=== PATIENT | female | born 1995 | race Caucasian/White ===

== ENCOUNTER 2017-06-06 09:25 | Emergency (ER) | payer BC, OTHER ==
[2017-06-06 09:44] VITALS: BP 133/82
--- NOTE | 2017-06-06 11:04 | UC ---
Complaint Female HPI - HPI Summary HPI Summary: right upper quad pain radiating in to back food makes her nauseated - History Of Current Complaint Chief Complaint: UCAbdominalPain Stated Complaint: ABD/BACK PAIN Time Seen by Provider: 06/06/17 10:53 Hx Obtained From: Patient Hx Last Menstrual Period: Nexplanon ?: No Onset/Duration: Sudden Onset, Lasting Days Timing: Intermittent Severity Initially: Moderate Severity Currently: Moderate Pain Intensity: 6 Pain Scale Used: 0-10 Numeric Character: Cramping, Colicy Aggravating Factor(s): Nothing Alleviating Factor(s): Nothing Associated Signs And Symptoms: Positive: Nausea - Allergies/Home Medications Allergies/Adverse Reactions: Allergies Allergy/AdvReac Type Severity Reaction Status Date / Time No Known Allergies Allergy Verified 06/06/17 09:44 Home Medications: Home Medications Etonogestrel [Nexplanon] 1 applic IMPLANT ONCE 06/06/17 [History Confirmed 06/06] PMH/Surg Hx/FS Hx/Imm Hx Previously Healthy: Yes Other History Of: Negative For: Anticoagulant Therapy - Surgical History Surgical History: Yes Surgery Procedure, Year, and Place: nose - Family History Known Family History: Positive: None - Social History Occupation: Employed Full-time Lives: With Family Alcohol Use: None Substance Use Type: None Smoking Status (MU): Never Smoked Tobacco Type: Cigarettes Household Exposure Type: Cigarettes - Immunization History Most Recent Influenza Vaccination: Not UTD Vaccination Up to Date: Yes Review of Systems Constitutional: Negative Skin: Negative Eyes: Negative ENT: Negative Respiratory: Negative Cardiovascular: Negative Gastrointestinal: Abdominal Pain, Nausea Genitourinary: Negative Motor: Negative Neurovascular: Negative Musculoskeletal: Negative Neurological: Negative Psychological: Negative Is Patient Immunocompromised?: No All Other Systems Reviewed And Are Negative: Yes Physical Exam Triage Information Reviewed: Yes Appearance: Well-Appearing, No Pain Distress, Well-Nourished Vital Signs: Initial Vital Signs Temp 97.8 F 06/06/17 09:38 Pulse 86 06/06/17 09:38 Resp 18 06/06/17 09:38 BP 133/82 06/06/17 09:38 Pulse Ox 99 06/06/17 09:38 Vital Signs Reviewed: Yes Eye Exam: Normal Eyes: Positive: Conjunctiva Clear ENT Exam: Normal ENT: Positive: Normal ENT inspection, Hearing grossly normal, Pharynx normal, Uvula midline. Negative: Nasal congestion, Nasal drainage, Trismus, Muffled voice, Hoarse voice, Dental tenderness, Sinus tenderness Dental Exam: Normal Neck exam: Normal Neck: Positive: Supple, Nontender, No Lymphadenopathy Respiratory Exam: Normal Respiratory: Positive: Chest non-tender, Lungs clear, Normal breath sounds, No respiratory distress, No accessory muscle use Cardiovascular Exam: Normal Cardiovascular: Positive: RRR, No Murmur, Pulses Normal, Brisk Capillary Refill Abdominal Exam: Normal Abdomen Description: Positive: No Organomegaly, Soft, Other: - right upper quad pain. Negative: CVA Tenderness (R), CVA Tenderness (L), Hepatomegaly, McBurney' s Point Tenderness Bowel Sounds: Positive: Present Musculoskeletal Exam: Normal Musculoskeletal: Positive: Strength Intact, ROM Intact, No Edema Neurological Exam: Normal Neurological: Positive: Alert, Muscle Tone Normal Psychological Exam: Normal Skin Exam: Normal Diagnostics - Radiology No standard instances Xray Interpretation: No Acute Changes Radiology Interpretation Completed By: Radiologist Complaint Female Dx - Course Course Of Treatment: protonix, macrobid, culture urine, increase fluids, to ED for increased pain fever nausea vomiting follow with pcp this comming week - Differential Dx/Diagnosis Provider Diagnoses: Abdomen pain Discharge - Discharge Plan Condition: Stable Disposition: HOME Prescriptions: Nitrofurantoin Monohyd Macro [Macrobid] 100 mg PO BID #20 cap Pantoprazole TAB (NF) [Protonix TAB (NF)] 40 mg PO DAILY #14 tab Patient Education Materials: Gastritis (ED), Urinary Tract Infection in Women ( ED), Acute Abdominal Pain (ED) Referrals: Fatimah Tucker MD [Primary Care Provider] - 1 Week
[2017-06-06] MEDS ORDERED: HYDROcodone/ACETAMIN 5-325 MG* 1 TAB PO ONE (11:30)
[2017-06-06] MEDS ORDERED: Ondansetron ODT TAB* 4 MG PO ONE (11:30)
--- NOTE | 2017-06-06 11:59 | RAD ---
INDICATION: ] Right upper quadrant pain COMPARISON: None TECHNIQUE: Longitudinal and transverse scans of the right upper quadrant were obtained. Doppler interrogation of the hepatic and portal venous system was performed. FINDINGS: Liver: There is hepatomegaly with hepatic steatosis. There are no masses . The liver measures 19.9 cm in cephalocaudal dimension. Vessels: There is normal hepatic and portal venous flow. Bile ducts: There is no evidence of intrahepatic or extrahepatic ductal dilatation. The common duct measures 0.3 cm. Gallbladder: The sonographic appearance of the gallbladder is normal. There is no evidence of cholelithiasis, thickening of the gallbladder wall, or pericholecystic fluid. Pancreas: The visualized pancreas appears normal Right kidney: The right kidney is normal in size and echogenicity. There are no masses or calculi. There is no evidence of hydronephrosis. The right kidney measures 12.0 x 4.3 x 4.8 cm. IVC and aorta: The aorta and superior vena cava appear normal. Fluid: There is no ascites. Other: None. IMPRESSION: HEPATOMEGALY WITH HEPATIC STEATOSIS. NORMAL GALLBLADDER.
== END 2017-06-06 12:28 | disposition home or self-care (01) ==
LOC: UCEAST 09:25
DX: R10.11 Right upper quadrant pain (principal); Z32.02 Encounter for pregnancy test, result negative
CPT/HCPCS: 76705; 81003; 84702; 87086; 99212; A9270-GY; G0463

== ENCOUNTER 2017-06-06 20:44 | Emergency (ER) | payer BC ==
[2017-06-06] MEDS ORDERED: Ketorolac INJ* 30 MG/ML 1 ML VIAL IV PUSH PRN (22:41)
[2017-06-06 23:02] LABS: Hematocrit 43 % (35-47); Hemoglobin 14.5 g/dl (12.0-16.0); Mean Corpuscular HGB Conc 34 g/dl (31-36); Mean Corpuscular Hemoglobin 28 pg (27-31); Mean Corpuscular Volume 83 fL (80-97); Mean Platelet Volume 8 um3 (7.4-10.4); Red Blood Count 5.18 10^6/ul (4.0-5.4); Red Cell Distribution Width 14 % (10.5-15); White Blood Count 12.3 10^3/ul (3.5-10.8)
[2017-06-06 23:18] LABS: ALT 43 U/L (7-52); AST 24 U/L (13-39); Albumin 4.2 g/dL (3.2-5.2); Alkaline Phosphatase 98 U/L (34-104); Anion Gap 9 mmol/L (2-11); BUN/Creatinine Ratio 12.9 (8-20); Blood Urea Nitrogen 11 mg/dL (6-24); CO2 Carbon Dioxide 22 mmol/L (22-32); Calcium 9.6 mg/dL (8.6-10.3); Chloride 106 mmol/L (101-111); Creatine Kinase 183 U/L (10-223); EGFR African American 109.7 (>60); EGFR Non-African American 85.3 (>60); Globulin 3.1 g/dL (2-4); Glucose 81 mg/dL (70-100); Magnesium 2.2 mg/dL (1.9-2.7); Sodium 137 mmol/L (133-145); Total Protein 7.3 g/dL (6.4-8.9)
[2017-06-06 23:26] LABS: Troponin I 0.06 ng/mL (<0.04)
[2017-06-06] MEDS ORDERED: Ketorolac INJ* 60 MG/2 ML VIAL IM ONE (23:48)
[2017-06-06] MEDS ORDERED: Aspirin Low Dose CHEW TAB* 81 MG PO ONE (23:48)
--- NOTE | 2017-06-07 03:47 | ED ---
Antonella Garcia Thomas, scribed for Faviola Ledezma MD on 06/06/17 at 2305 . Abdominal Pain/Female - HPI Summary HPI Summary: The pt is a 21 y/o F presenting to the ED c/o right anterior chest pain that began today at 19:00. The patient was evaluated at Urgent Care today and instructed to come to the ED if she developed chest pain. In the ED, the pt reports pain originating in the abd that has moved to the chest. Pain is moderate in severity. The pain is aggravated by deep breaths and is alleviated by nothing. Patient additionally c/o of mild cough and SOB. She was diagnosed with a UTI at urgent care. - History of Current Complaint Chief Complaint: EDChestWallPain Stated Complaint: SOB/CHEST PAIN Time Seen by Provider: 06/06/17 22:34 Hx Obtained From: Patient Hx Last Menstrual Period: Nexplanon Onset/Duration: Lasting Hours - 2.5, Still Present Timing: Constant Severity Currently: Moderate Pain Intensity: 7 Pain Scale Used: 0-10 Numeric Aggravating Factor(s): Deep Breaths Alleviating Factor(s): Nothing Associated Signs and Symptoms: Positive: Cough - mild, Chest Pain, Other: - SOB Allergies/Adverse Reactions: Allergies Allergy/AdvReac Type Severity Reaction Status Date / Time No Known Allergies Allergy Verified 06/06/17 09:44 PMH/Surg Hx/FS Hx/Imm Hx Previously Healthy: Yes Endocrine/Hematology History: Denies: Hx Anticoagulant Therapy, Hx Diabetes, Other Endocrine/Hematological Disorders Cardiovascular History: Denies: Hx Hypertension, Hx Pacemaker/ICD, Other Cardiovascular Problems/ Disorders Respiratory History: Reports: Hx Asthma - asthma-like exercise induced Denies: Other Respiratory Problems/Disorders GI History: Denies: Other GI Disorders History: Denies: Other Problems/Disorders Musculoskeletal History: Denies: Other Musculoskeletal History Sensory History: Denies: Hx Hearing Aid, Other Sensory Impairments Opthamlomology History: Denies: Other Sensory Impairments Neurological History: Denies: Other Neuro Impairments/Disorders Psychiatric History: Reports: Hx Depression Denies: Hx Eating Disorder, Hx Panic Disorder, Hx of Violent Episodes Against Others, Other Psychiatric Issues/Disorders - Surgical History Surgery Procedure, Year, and Place: nose Infectious Disease History: No Infectious Disease History: Denies: Hx Clostridium Difficile, Hx Hepatitis, Hx Human Immunodeficiency Virus (HIV), Hx Tuberculosis, History Other Infectious Disease, Traveled Outside the [place] in Last 30 Days - Family History Known Family History: Positive: Other - Depression - Social History Alcohol Use: None Substance Use Type: Reports: None Type: Cigarettes Review of Systems Positive: Chest Pain. Negative: Palpitations Positive: Shortness Of Breath, Cough - mild Positive: Abdominal Pain All Other Systems Reviewed And Are Negative: Yes Physical Exam - Summary Physical Exam Summary: VITAL SIGNS: Reviewed. GENERAL: Patient is a well-developed and nourished female who is lying comfortable in the stretcher. Patient is not in any acute respiratory distress. HEAD AND FACE: No signs of trauma. No ecchymosis, hematomas or skull depressions. No sinus tenderness. EYES: PERRLA, EOMI x 2, No injected conjunctiva, no nystagmus. EARS: Hearing grossly intact. Ear canals and tympanic membranes are within normal limits. MOUTH: Oropharynx within normal limits. NECK: Supple, trachea is midline, no adenopathy, no JVD, no carotid bruit, no c- spine tenderness, neck with full ROM. CHEST: Symmetric, no tenderness at palpation LUNGS: Clear to auscultation bilaterally. No wheezing or crackles. CVS: Regular rate and rhythm, S1 and S2 present, no murmurs or gallops appreciated. ABDOMEN: Soft, non-tender. No signs of distention. No rebound no guarding, and no masses palpated. Bowel sounds are normal. EXTREMITIES: FROM in all major joints, no edema, no cyanosis or clubbing. NEURO: Alert and oriented x 3. No acute neurological deficits. Speech is normal and follows commands. SKIN: Dry and warm Triage Information Reviewed: Yes Vital Signs On Initial Exam: Initial Vitals Temp Pulse Resp BP Pulse Ox 97.1 F 84 18 99/40 100 06/06/17 20:48 06/06/17 20:48 06/06/17 20:48 06/06/17 20:48 06/06/17 20:48 Vital Signs Reviewed: Yes Diagnostics - Vital Signs Vital Signs Temp Pulse Resp BP Pulse Ox 06/06/17 20:48 97.1 F 84 18 99/40 100 - Laboratory Result Diagrams: 06/06/17 22:50 06/06/17 22:50 Lab Statement: Any lab studies that have been ordered have been reviewed, and results considered in the medical decision making process. - Radiology CXR Xray Interpretation: No Acute Changes - normal chest x-ray Radiology Interpretation Completed By: ED Physician - EKG 23:29 Cardiac Rate: NL EKG Rhythm: Sinus Rhythm - at 74 BPM EKG Interpretation: Nonspecific T-wave changes. Abdominal Pain Fem Course/Dx - Course Course Of Treatment: In the ED course the patient was given ASA and Toradol. Bloodwork shows troponin #1 is 0.06. The patient had a normal EKG. Her symptoms are atypical for a cardiac origin. She is diagnosed with chest wall pain. Repeat troponin is negative. - Diagnoses Provider Diagnoses: Chest wall pain Discharge - Discharge Plan Condition: Stable Disposition: HOME Patient Education Materials: Chest Wall Pain (ED) Referrals: Fatimah Tucker MD [Primary Care Provider] - 3 Days Additional Instructions: Take Motrin as needed for the pain. Follow up with your primary care physician in three days. Return to the emergency department for any new or worsening symptoms. The documentation as recorded by the Antonella barrientos Thomas accurately reflects the service I personally performed and the decisions made by , Faviola Ledezma MD.
[2017-06-07 04:08] VITALS: BP 127/69
--- NOTE | 2017-06-07 09:23 | RAD ---
INDICATION: Chest pain and shortness of breath COMPARISON: Most recent comparison chest x-rays dated December 31, 2004 TECHNIQUE: Single AP portable view of the chest was obtained. FINDINGS: Image quality is compromised due to the relative inferiority of a portable chest x-ray and poor penetration due to body habitus. The heart and mediastinum exhibit normal size and contour. There is mild peribronchial cuffing. Otherwise the lungs are grossly clear. There is no evidence of a large pleural effusion. Visualized bones are normal for the patient's age. IMPRESSION: This chest x-ray is of limited diagnostic value due to the inherent inferiority a portable chest x-ray and incomplete x-ray penetration due to body habitus. The mild peribronchial cuffing could be seen in the setting of inflammatory lung disease.
== END 2017-06-07 04:06 | disposition home or self-care (01) ==
LOC: ED 20:44
DX: R07.89 Other chest pain (principal); N39.0 Urinary tract infection, site not specified; J45.909 Unspecified asthma, uncomplicated
CPT/HCPCS: 36415; 71010; 80053; 82550; 83735; 83880; 84484; 84702; 85025; 85379; 85610; 85730; 93005; 96372; 96374; 99284; A9270-GY; J1885

== ENCOUNTER 2017-11-19 12:05 | Emergency (ER) | payer BC ==
[2017-11-19 12:15] VITALS: BP 139/83
--- NOTE | 2017-11-19 13:35 | UC ---
Throat Pain/Nasal Malick HPI - HPI Summary HPI Summary: Patient is a 22-year-old female presenting to the with chief complaint of bilateral tonsillar swelling with exudates, odynophagia dysphagia 2 days. Denies any known sick contacts. History of strep throat as a child, none recently. Denies any fevers, sweats, chills. Endorses enlarged lymph nodes bilaterally. Denies any chest pain, shortness of breath, headache. Immunizations are up-to-date. Denies any known allergies. - History of Current Complaint Chief Complaint: UCRespiratory Stated Complaint: SORE THROAT Time Seen by Provider: 11/19/17 12:08 Hx Obtained From: Patient Hx Last Menstrual Period: Nexplanon ?: No Onset/Duration: Sudden Onset Severity: Moderate Pain Intensity: 1 Pain Scale Used: 0-10 Numeric Associated Signs & Symptoms: Positive: Dysphagia. Negative: FB Sensation, Drooling, Hoarseness, Sinus Discomfort - Epiglottits Risk Factors Epiglottis Risk Factors: Negative - Allergies/Home Medications Allergies/Adverse Reactions: Allergies Allergy/AdvReac Type Severity Reaction Status Date / Time No Known Allergies Allergy Verified 11/19/17 12:15 PMH/Surg Hx/FS Hx/Imm Hx Previously Healthy: Yes Other History Of: Negative For: Anticoagulant Therapy - Surgical History Surgical History: Yes Surgery Procedure, Year, and Place: nose - Family History Known Family History: Positive: Other - Depression - Social History Occupation: Employed Part-time Lives: With Family Alcohol Use: Occasionally Substance Use Type: None Smoking Status (MU): Former Smoker Type: eCigarettes Household Exposure Type: Cigarettes - Immunization History Most Recent Influenza Vaccination: Not UTD Vaccination Up to Date: Yes Review of Systems Constitutional: Negative Skin: Negative Eyes: Negative ENT: Sore Throat Respiratory: Negative Cardiovascular: Negative Motor: Negative Neurovascular: Negative Neurological: Negative Is Patient Immunocompromised?: No All Other Systems Reviewed And Are Negative: Yes Physical Exam Triage Information Reviewed: Yes Appearance: Well-Appearing, Well-Nourished Vital Signs: Initial Vital Signs Temp 97.7 F 11/19/17 12:12 Pulse 73 11/19/17 12:12 Resp 18 11/19/17 12:12 BP 139/83 11/19/17 12:12 Pulse Ox 98 11/19/17 12:12 Vital Signs Reviewed: Yes Eye Exam: Normal Eyes: Positive: Conjunctiva Clear ENT: Positive: Pharyngeal erythema, Tonsillar swelling, Tonsillar exudate. Negative: TM bulging, TM dull, TM red, Hoarse voice, Dental tenderness, Sinus tenderness Dental Exam: Normal Neck: Positive: Tenderness @ - cervical anterior bilateral LAD Cardiovascular: Positive: RRR Musculoskeletal Exam: Normal Musculoskeletal: Positive: Strength Intact Neurological Exam: Normal Psychological: Positive: Normal Response To Family Skin Exam: Normal Throat Pain/Nasal Course/Dx - Course Course Of Treatment: during the course of treatment, the patient is evaluated for sore throat, odynophagia and dysphagia. Strep swab obtained and is negative. On physical examination bilateral enlarged tonsils with erythema and exudates. Tonsils +3. She remains able to swallow and is not drooling. Denies trismus. Uvula is midline. Endorses odynophagia dysphagia. Patient is given a short course of steroids, prednisone 50 mg once daily 5 days. She will return for any worsening or changing symptoms. - Differential Dx/Diagnosis Provider Diagnoses: Tonsillitis Discharge - Sign-Out/Discharge Documenting (check all that apply): Discharge/Admit/Transfer - Discharge Plan Condition: Stable Disposition: HOME Prescriptions: predniSONE TAB* [Deltasone TAB*] 50 mg PO DAILY #5 tab MDD 1 Patient Education Materials: Tonsillitis (ED) Referrals: Fatimah Tucker MD [Primary Care Provider] - Additional Instructions: Prednisone once daily x 5 days Cepacol tabs over the counter for discomfort Tylenol - Billing Disposition and Condition Condition: STABLE Disposition: HOME
== END 2017-11-19 12:51 | disposition home or self-care (01) ==
LOC: UCEAST 12:05
DX: J03.90 Acute tonsillitis, unspecified (principal); Z87.891 Personal history of nicotine dependence
CPT/HCPCS: 87651; 99212; G0463

== ENCOUNTER 2018-10-23 10:25 | Emergency (ER) | payer BC ==
[2018-10-23 10:40] VITALS: BP 115/83
--- NOTE | 2018-10-23 10:47 | UC ---
Throat Pain/Nasal Malick HPI - HPI Summary HPI Summary: 23 -year-old female with sore throat and fever since yesterday. - History of Current Complaint Chief Complaint: UCGeneralIllness Stated Complaint: SORE THROAT Time Seen by Provider: 10/23/18 10:29 Hx Obtained From: Patient Hx Last Menstrual Period: doesn't get d/t implant ?: No Onset/Duration: Gradual Onset Severity: Moderate Pain Intensity: 7 Cough: None Associated Signs & Symptoms: Positive: Negative - Epiglottits Risk Factors Epiglottis Risk Factors: Negative - Allergies/Home Medications Allergies/Adverse Reactions: Allergies Allergy/AdvReac Type Severity Reaction Status Date / Time No Known Allergies Allergy Verified 10/23/18 10:40 Home Medications: Home Medications Acetaminophen [Mapap] 2 tab PO ONCE PRN 10/23/18 [History Confirmed 10/23/18] PMH/Surg Hx/FS Hx/Imm Hx Previously Healthy: Yes Other History Of: Negative For: Anticoagulant Therapy - Surgical History Surgical History: Yes Surgery Procedure, Year, and Place: nose. wisdom tooth removal - Family History Known Family History: Positive: Other - Depression - Social History Alcohol Use: Occasionally Substance Use Type: Marijuana Smoking Status (MU): Light Every Day Tobacco Smoker Type: eCigarettes Amount Used/How Often: vapes Household Exposure Type: Cigarettes - Immunization History Most Recent Influenza Vaccination: Not UTD Vaccination Up to Date: Yes Review of Systems All Other Systems Reviewed And Are Negative: Yes Constitutional: Positive: Fever ENT: Positive: Sore Throat Is Patient Immunocompromised?: No Physical Exam Triage Information Reviewed: Yes Appearance: Well-Appearing, No Pain Distress, Well-Nourished Vital Signs: Initial Vital Signs Temp 98.5 F 10/23/18 10:35 Pulse 107 10/23/18 10:35 Resp 18 10/23/18 10:35 BP 115/83 10/23/18 10:35 Pulse Ox 100 10/23/18 10:35 Vital Signs Reviewed: Yes Eye Exam: Normal ENT: Positive: Pharyngeal erythema, TMs normal, Tonsillar swelling, Tonsillar exudate, Uvula midline. Negative: Trismus, Muffled voice, Hoarse voice Neck exam: Normal Neck: Positive: Supple, Nontender, Enlarged Nodes @ - Minimal tonsillar lymph node enlargement. Cardiovascular: Positive: No Murmur, Pulses Normal, Brisk Capillary Refill, Tachycardia Musculoskeletal Exam: Normal Neurological Exam: Normal Psychological Exam: Normal Skin: Positive: Other Throat Pain/Nasal Course/Dx - Course Course Of Treatment: Strep test was negative. I am going to treat the patient with amoxicillin 875 mg by mouth twice a day 10 days. She is to increase fluids and we discussed reasons to go to the emergency room if her condition worsens would include a feeling of her throat closing, unable to swallow her saliva. - Differential Dx/Diagnosis Provider Diagnosis: Tonsillitis Discharge - Sign-Out/Discharge Documenting (check all that apply): Patient Departure All imaging exams completed and their final reports reviewed: No Studies - Discharge Plan Condition: Fair Disposition: HOME Prescriptions: Amoxicillin PO (*) [Amoxicillin 875 MG (*)] 875 mg PO BID 10 Days #20 tab Patient Education Materials: Tonsillitis (ED) Referrals: Fatimah Tucker MD [Primary Care Provider] - Additional Instructions: Increase fluids, change her toothbrush in 24 hours, Tylenol every 4 hours or Motrin every 8 hours for pain or fever. Follow-up with your primary care provider in 3 or 4 days if no improvement. Go to the emergency room if you have difficulty swallowing her saliva or feel like your throat is closing. - Billing Disposition and Condition Condition: FAIR Disposition: Home
== END 2018-10-23 11:11 | disposition home or self-care (01) ==
LOC: UCEAST 10:25
DX: J03.90 Acute tonsillitis, unspecified (principal); R50.9 Fever, unspecified; F17.290 Nicotine dependence, other tobacco product, uncomplicated
CPT/HCPCS: 87651; 99212; G0463